=== PATIENT | male | born 1970 | race Caucasian/White ===

== ENCOUNTER → 2024-06-04 | Outpatient (CLI) | payer MEDICAID, SELFPAY ==
--- NOTE | 2024-06-04 14:18 | XR_ITS ---
Examination: PA lateral chest 2 views TECHNIQUE: Upright PA lateral chest 2 views Exam date and time: June 04, 2024 1434 hours Comparison November 11, 2023, chest film 02/05/2024 FINDINGS: Again noted prominent pleural thickening along the right lateral thoracic wall, noted on the November 11, 2023 exam, not seen on the February 05, 2004 chest exam CABG Cardiac leads satisfactory position COPD with moderate hyperexpansion IMPRESSION: Abnormal pleural thickening along the right lateral thoracic wall, differential would include pleural-based neoplasm, recommend CT chest without contrast follow-up
== END | disposition home or self-care (01) ==
LOC: CDIM 13:57
PROVIDERS: PCP Physician Assistant; Referring Provider Physician Assistant; Visit Provider Physician Assistant
DX: J44.9 Chronic obstructive pulmonary disease, unspecified (principal); J92.9 Pleural plaque without asbestos
CPT/HCPCS: 71046

== ENCOUNTER → 2024-06-29 | Outpatient (CLI) | payer MEDICAID, SELFPAY ==
--- NOTE | 2024-06-29 15:30 | XR_ITS ---
Examination: CT chest, without intravenous contrast. Sagittal and coronal 2-D reconstructions. Exam date and time: June 29, 2024 1632 hours INDICATIONS: Asbestos exposure, heart surgery November 2023 chest pain 2 years CTDI:vol (mGy) 14.9 DLP: (mGycm) 607 Technique: Multiple 3.0 mm axial sections of the chest to been obtained. Bone and lung density settings are obtained. Sagittal and coronal 2-D reconstructions have been obtained. Low dose protocols were performed. One or more of the following dose reduction techniques were used; automated exposure control, adjustment of the mA and/or KV according to patient size, use of iterative reconstruction technique. Findings: No thoracic aortic aneurysm dilatation Pulmonary artery segments are not enlarged Mild prominence left ventricle No paratracheal tracheobronchial or bronchopulmonary adenopathy COPD with multiple areas of airspace destruction No pneumonia, pulmonary edema, pulmonary mass lesion Pleural thickening bilaterally, most prominent on the right lateral hemithorax measuring up to 15 mm No visualized liver or splenic lesion No gallstones Atrophic pancreas The osseous structures are intact IMPRESSION: COPD No mediastinal lymphadenopathy No pneumonia, pulmonary edema, or pulmonary mass lesion Bilateral pleural thickening as above, recommend 6 month follow-up chest imaging to document stability of this pleural thickening
== END | disposition home or self-care (01) ==
PROVIDERS: PCP Physician Assistant; Referring Provider Physician Assistant; Visit Provider Physician Assistant
DX: J44.9 Chronic obstructive pulmonary disease, unspecified (principal); R91.8 Other nonspecific abnormal finding of lung field
CPT/HCPCS: 71250

== ENCOUNTER 2024-12-16 14:57 | Emergency (ER) | payer MEDICAID, SELFPAY ==
[2024-12-16 15:04] VITALS: BP 117/78; PULSE 78; RESP 19; TEMP 36.8; O2SAT 98
[2024-12-16 15:05] VITALS: PULSE 78; RESP 18; O2SAT 99; BMI 35.6
--- NOTE | 2024-12-16 15:12 | EKG_ITS ---
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
[2024-12-16] MEDS: SODIUM CHLORIDE 0.9% 500 ML 500 ML 75 ML IV (15:29)
[2024-12-16] MEDS: MethylPREDNISolone SOD SUCC 62.5 MG/ML 2ML VIAL 125 MG IVP (15:30)
[2024-12-16 15:41] VITALS: PULSE 78; PULSE 80; RESP 20; O2SAT 98
[2024-12-16] MEDS: ALBUTEROL RT 2.5 MG/0.5 ML NEBU 5 MG INH (15:41)
[2024-12-16] MEDS: SODIUM CHLORIDE RT SOL 0.9% 3 ML NEBU INH (15:41)
[2024-12-16 15:47] VITALS: BP 121/77; PULSE 77; RESP 17; TEMP 36.9; O2SAT 94
[2024-12-16 15:50] LABS: Basophils # (Auto) 0.1 Thou/mm3 (0.0-0.2); Basophils % (Auto) 1 % (0-2.5); Eosinophils # (Auto) 0.2 Thou/mm3 (0.0-0.5); Eosinophils % (Auto) 2 % (0-10); Hematocrit 47.4 % (41.0-53.0); Hemoglobin 16.2 g/dL (13.5-16.0); Immature Granulocytes Auto 0.09 Thou/mm3 (0.00-0.00); Lymphocytes # (Auto) 1.3 Thou/mm3 (1.0-4.8); Lymphocytes % (Auto) 13 % (10-50); Mean Corpuscular HGB Conc 34.2 g/dl (31.0-37.0); Mean Corpuscular Hemoglobin 30.9 pg (25.0-35.0); Mean Corpuscular Volume 90 fL (80-100); Monocytes # (Auto) 1.5 Thou/mm3 (0.0-0.8); Monocytes % (Auto) 15 % (0-12); Neutrophils # (Auto) 6.6 Thou/mm3 (1.8-7.7); Neutrophils % (Auto) 68 % (37-80); Nucleated Red Blood Cell # 0.00 Thou/mm3 (0.00-0.00); Nucleated Red Blood Cell % 0 /100 WBC (0); Platelet Count 219 Thou/mm3 (140-440); RDW Standard Deviation 45.5 fL (35.1-43.9); Red Blood Count 5.25 Miln/mm3 (4.50-5.90); White Blood Count 9.7 Thou/mm3 (3.8-10.6)
[2024-12-16 16:03] LABS: INR 1.0 (0.9-1.3); Prothrombin Time 10.9 Seconds (9.0-12.2)
[2024-12-16 16:06] LABS: B-Type Natriuretic Peptide 59 pg/mL (0-100)
[2024-12-16 16:13] LABS: Alanine Aminotransferase 22 U/L (10-49); Albumin, Serum 4.5 gm/dL (3.5-5.0); Albumin/Globulin Ratio 1.9 (1.2-2.2); Alkaline Phosphatase 119 U/L (46-116); Anion Gap 9 (7-16); Aspartate Amino Transferase 28 U/L (0-34); BUN/Creatinine Ratio 9 Ratio (12-20); Bilirubin,Total 0.3 mg/dL (0.3-1.2); Blood Urea Nitrogen 8 mg/dL (9-23); Calcium 8.9 mg/dL (8.3-10.6); Calcium (Corrected) 8.9 mg/dL (8.5-10.1); Carbon Dioxide 30.6 mMol/L (20.0-31.0); Chloride 103 mMol/L (98-107); Creatinine (Component) 0.9 mg/dL (0.6-1.3); Estimated Creatinine Clearance 102.8 mL/min (>60); Globulin 2.4 gm/dL (2.3-3.5); Glucose 88 mg/dL (74-106); Magnesium 1.8 mg/dL (1.6-2.6); Osmolality,Calculated 282 (275-295); Sodium 143 mMol/L (136-145); Total Protein 6.9 gm/dL (5.7-8.2); Troponin I < 0.020 ng/mL (0.0-0.045); eGFR > 60 See Note
[2024-12-16 16:18] LABS: Potassium 4.4 mMol/L (3.4-5.1)
--- NOTE | 2024-12-16 17:02 | XR_ITS ---
Examination: AP chest single view Technique one AP portable semiupright chest single view Date and time: December 16, 2024 7005 hours Comparison June 04, 2024 INDICATIONS: Shortness of the chest pain today. FINDINGS: Mild enlargement cardiac contour Opacity in the left lung adjacent to the cardiac contour No pulmonary edema CABG Cardiac leads satisfactory position IMPRESSION: Recommend lateral chest follow-up to exclude pneumonia in the lingular segment left upper lobe
[2024-12-16 17:44] VITALS: BP 119/72; PULSE 79; RESP 20; TEMP 36.8; O2SAT 94
== END 2024-12-16 17:50 | disposition home or self-care (01) ==
PROVIDERS: Emergency Provider Family Medicine; PCP Physician Assistant
DX: J44.1 Chronic obstructive pulmonary disease with (acute) exacerbation (principal); R94.31 Abnormal electrocardiogram [ECG] [EKG]; E78.00 Pure hypercholesterolemia, unspecified; F17.200 Nicotine dependence, unspecified, uncomplicated
CPT/HCPCS: 36415; 71045; 80053; 81001; 83605; 83735; 83880; 84484; 85025; 85610; 85730; 87040; 93005; 94640; 96361; 96374; 99283; J2919; J7999; J7609